=== PATIENT | male | born 1980 | race Caucasian/White ===

== ENCOUNTER 2016-05-15 15:28 | Emergency (ER) | payer OTHER ==
[~2016-05-15] VITALS: Ht 177.8 cm; Wt 80.6 kg
[~2016-05-15 15:28] MED LIST: GABAPENTIN100 MG PO; NEURONTIN100 MG PO; NEXIUM40 MG PO
[2016-05-15 16:34] LABS: EOSINOPHIL (%) 0.2 % (0-5); HEMATOCRIT 44.1 % (38.0-50.0); IMMATURE GRANULOCYTE (%) 0.2 % (0.0-0.7); IMMATURE GRANULOCYTE COUNT 0.3 K/uL; LYMPHOCYTE COUNT 1.1 K/uL (1.0-2.8); MCHC 34.7 G/DL (30.0-36.0); MCV 89.5 FL (86-99); MEAN PLAT.VOLUME 9.8 uM^3 (9.0-12.4); MONOCYTE (%) 5.3 % (3-12); MONOCYTE COUNT 0.8 K/uL (0-0.8); NEUTROPHIL (%) 86.6 % (45-76); NEUTROPHIL COUNT 12.3 K/uL (1.8-6.4); PLATELET COUNT 312 K/uL (156-360); RBC DIS.WIDTH-CV 13.2 % (11.8-14.6); RBC DIS.WIDTH-SD 42.3 % (39-53); RED BLOOD COUNT 4.93 M/uL (4.00-5.50); WHITE BLOOD COUNT 14.2 K/uL (4.1-10.2)
[2016-05-15 16:41] LABS: CHLORIDE 106 mEq/L (99-109); POTASSIUM 4.8 mEq/L (3.7-5.4); SODIUM 138 mEq/L (136-147)
[2016-05-15 16:44] LABS: GLUCOSE 110 mg/dL (70-99)
[2016-05-15 16:45] LABS: ANION GAP 10 MEQ/L (2-14); TOTAL BILIRUBIN 0.9 mg/dL (0.0-1.0)
[2016-05-15 16:46] LABS: SERUM ETHYL ALCOHOL 10 mg/dL
[2016-05-15 16:47] LABS: ALKALINE PHOSPHATASE 88 IU/L (3-129); GFR ESTIMATE (CALCULATED) > 59 mL/min/
[2016-05-15 16:48] LABS: UREA NITROGEN (BUN) 12 mg/dL (9-23)
[2016-05-15] MEDS ORDERED: ZOFRAN ODT4 MG PO (18:43)
[2016-05-15 18:48] VITALS: BP 120/72
== END 2016-05-15 18:49 | disposition home or self-care (01) ==
LOC: EME 15:28
PROVIDERS: Emergency Medicine
DX: S06.0X9A Concussion with loss of consciousness of unspecified duration, initial encounter (principal); F10.10 Alcohol abuse, uncomplicated; F11.23 Opioid dependence with withdrawal; Y09 Assault by unspecified means; I10 Essential (primary) hypertension; F17.200 Nicotine dependence, unspecified, uncomplicated
CPT/HCPCS: 70450; 72125; 80053; 85025; 99281; 99285; G0480; J2405; J3010; J7030